=== PATIENT | female | born 1985 | race American Indian/Alaskan Native ===

== ENCOUNTER 2018-02-19 11:09 | Emergency (ER) | payer MEDICAID ==
[2018-02-19] MEDS ORDERED: NORCO 5/325 PO ONE (13:37)
[2018-02-19] MEDS ORDERED: MOTRIN PO ONE (13:38)
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
[2018-02-19 16:33] VITALS: BP 122/74
== END 2018-02-19 16:30 | disposition home or self-care (01) ==
LOC: ED 11:09
DX: S16.1XXA Strain of muscle, fascia and tendon at neck level, initial encounter (principal); S39.012A Strain of muscle, fascia and tendon of lower back, initial encounter; F07.81 Postconcussional syndrome; G44.309 Post-traumatic headache, unspecified, not intractable; S40.812A Abrasion of left upper arm, initial encounter; S40.811A Abrasion of right upper arm, initial encounter; F17.200 Nicotine dependence, unspecified, uncomplicated; Y08.89XA Assault by other specified means, initial encounter; Y93.89 Activity, other specified; Y92.89 Other specified places as the place of occurrence of the external cause; Y99.8 Other external cause status
CPT/HCPCS: 70450; 72125

== ENCOUNTER 2018-11-03 09:54 | Outpatient (CLI) | payer MEDICAID ==
--- NOTE | 2018-11-03 16:19 | Magnetic Resonance Report ---
MRI BRAIN WITHOUT CONTRAST INDICATION / CLINICAL INFORMATION: MIGRANES. Vertigo TECHNIQUE: Multiplanar, multisequence MR images of the brain were obtained. COMPARISON: CT scan from 02/19/2018 is not available for comparison. FINDINGS: BRAIN / INTRACRANIAL CONTENTS: No acute ischemia, acute hemorrhage, mass effect, midline shift, or hy drocephalus. Considering the age height convexity cortical sulci are prominent suggesting mild invol ution. No significant white matter abnormality. Given the history of lupus, I do not see subcortical or deep white matter hyperintensities. CRANIOCERVICAL JUNCTION: No significant abnormality. VASCULAR FLOW-VOIDS: No significant abnormality. ORBITS: No significant abnormality of visualized orbits. SINUSES / MASTOIDS: No significant abnormality of visualized sinuses and mastoid air cells. ADDITIONAL FINDINGS: Pineal region lesion is seen. This lesion has increased T2 signal intensity supp ressed in the FLAIR images. It has a thin wall. I do not see findings to suggest hemorrhage within th is lesion. 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 I do not see compressi on of tectal plate or cerebral aqueduct. This cyst measures 13 mm in sagittal dimension and 8 mm in the transverse dimension. IMPRESSION: I do not see an acute parenchymal lesion in the brain. 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
== END 2018-11-03 09:55 | disposition home or self-care (01) ==
LOC: MRI 09:54
PROVIDERS: ATTEND Psychiatry & Neurology Neurology
DX: G43.709 Chronic migraine without aura, not intractable, without status migrainosus (principal)
CPT/HCPCS: 70551

== ENCOUNTER 2019-11-10 14:35 | Emergency (ER) | payer MEDICAID ==
[2019-11-10 14:53] VITALS: BP 119/84
[2019-11-10] MEDS ORDERED: IBUPROFEN 800 MG TAB PO ONE (16:44)
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
--- NOTE | 2019-11-10 18:53 | XRay Report ---
XR spine cervical 2-3V INDICATION / CLINICAL INFORMATION: Neck pain. COMPARISON: None available. FINDINGS: BONES/JOINT(S): No acute fracture or subluxation. Mild degenerative disc disease at C4-5 with disc he ight loss and endplate osteophyte formation. No focal bone lesion. SOFT TISSUES: No significant abnormality. ADDITIONAL FINDINGS: None. Signer Name: Teto Lancaster MD Signed: 11/10/2019 6:49 PM Workstation Name: [id number]
--- NOTE | 2019-11-10 18:54 | XRay Report ---
XR shoulder 2+V LT INDICATION / CLINICAL INFORMATION: Left shoulder pain. COMPARISON: None available. FINDINGS: BONES/JOINT(S): No acute fracture or subluxation. No significant degenerative changes. No focal bone lesion. SOFT TISSUES: No significant abnormality. ADDITIONAL FINDINGS: None. Signer Name: Teto Lancaster MD Signed: 11/10/2019 6:49 PM Workstation Name: [id number]
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
== END 2019-11-10 20:05 | disposition home or self-care (01) ==
LOC: ED 14:35
DX: S43.402A Unspecified sprain of left shoulder joint, initial encounter (principal); M62.838 Other muscle spasm; M50.321 Other cervical disc degeneration at C4-C5 level; G43.909 Migraine, unspecified, not intractable, without status migrainosus; Z87.891 Personal history of nicotine dependence; V89.2XXA Person injured in unspecified motor-vehicle accident, traffic, initial encounter; Y93.89 Activity, other specified; Y92.410 Unspecified street and highway as the place of occurrence of the external cause; Y99.8 Other external cause status
CPT/HCPCS: 72040; 99283